=== PATIENT | male | born 1945 | race Caucasian/White ===

== ENCOUNTER 2024-09-15 15:32 | Inpatient (IN) | payer MEDICARE, MEDICAID ==
[~2024-09-15] VITALS: Ht 175.3 cm; Wt 65.8 kg
[2024-09-15 16:24] LABS: BASOPHILS % 0.7 % (0.0-2.0); EOSINOPHILS % 12.3 % (0.0-5.0); HEMOGLOBIN. 10.2 g/dL (14.0-18.0); LYMPHOCYTES % 10.4 % (20.0-50.0); MEAN CORPUSCULAR HEMOGLOBIN 31.4 pg (28.0-32.0); MEAN CORPUSCULAR HGB CONC 33.9 g/dL (31.0-37.0); MEAN CORPUSCULAR VOLUME 92.7 fL (80.0-94.0); MEAN PLATELET VOLUME 7.1 fl (7.4-10.4); MONOCYTES % 6.9 % (2.0-8.0); NEUTROPHILS % 69.7 % (40.0-76.0); PLATELET 299 x1000/uL (130-400); RED BLOOD CELL COUNT 3.24 mill/uL (4.7-6.1)
[2024-09-15 16:26] LABS: CHLORIDE 99 mEq/L (98-107); POTASSIUM 3.6 mEq/L (3.5-5.1); SODIUM 134 mEq/L (136-145)
[2024-09-15 16:27] LABS: CALCIUM 7.6 mg/dL (8.7-10.4); CARBON DIOXIDE 23 mEq/L (21-32)
[2024-09-15 16:32] LABS: GLUCOSE 213 mg/dL (70-105); UREA NITROGEN BLOOD 68 mg/dL (9-23)
[2024-09-15 16:44] LABS: CREATININE 8.7 mg/dL (0.6-1.3); TROPONIN I HIGH SENSITIVITY 57 ng/L (3.0-53)
[2024-09-15 20:00] VITALS: BP_SYST 122; BP_SYST 148; BP_DIAS 76; BP_DIAS 78; PULSE 79; PULSE 84; RESP 18; TEMP 36.5; TEMP 36.6; O2SAT 97
[2024-09-16] VITALS (8 sets, daily range): BP systolic 104–149; BP diastolic 49–86; PULSE 72–80; RESP 18–20; TEMP 35.9–37.16964; O2SAT 97–100
[2024-09-16] MEDS ORDERED: LORATADINE 10MG TABLET PO PRN (03:00)
[2024-09-16] MEDS ORDERED: DEXTROSE 50% WATER 50ML SYRINGE IV PRN (03:00)
[2024-09-16] MEDS ORDERED: ACETAMINOPHEN 500MG TABLET PO PRN (03:00)
[2024-09-16] MEDS ORDERED: BIMA2.5D4 EACHEYE (03:58)
[2024-09-16] MEDS ORDERED: LORA10TA7 PO (03:58)
[2024-09-16] MEDS ORDERED: TOPUD PO (04:00)
[2024-09-16] MEDS ORDERED: ASPI-1406 PO (04:04)
[2024-09-16] MEDS ORDERED: FOLI0.8T53 MT (04:05)
[2024-09-16] MEDS ORDERED: ATOR10TA69 PO (04:06)
[2024-09-16] MEDS ORDERED: LABE200T9 PO (04:07)
[2024-09-16] MEDS ORDERED: FURO20TA4 PO (04:13)
[2024-09-16] MEDS: BLOOD SUGAR DIAGNOSTIC STRIP TEST SCH (07:10)
[2024-09-16] MEDS: INSULIN LISPRO 100 UNITS/ML SUBCUT SCH (07:38)
[2024-09-16] MEDS: ASPIRIN 81MG EC TABLET PO SCH (08:25)
[2024-09-16] MEDS: AMLODIPINE 10MG TABLET PO SCH (08:25)
[2024-09-16] MEDS: LABETALOL HCL 200MG TABLET PO SCH (08:25)
[2024-09-16] MEDS: INSULIN GLARGINE 100 UNITS/ML SUBCUT SCH (09:48)
[2024-09-16 09:59] LABS: HEMATOCRIT 29.7 % (42.0-52.0); HEMOGLOBIN 10.1 g/dL (14.0-18.0); MEAN CORPUSCULAR HEMOGLOBIN 31.5 pg (28.0-32.0); MEAN CORPUSCULAR HGB CONC 34.1 g/dL (31.0-37.0); MEAN CORPUSCULAR VOLUME 92.5 fL (80.0-94.0); PLATELET 293 x1000/uL (130-400); RED BLOOD CELL COUNT 3.21 mill/uL (4.7-6.1); RED CELL DISTRIBUTION WIDTH 13.9 % (11.6-14.6); WHITE BLOOD COUNT 8.1 x1000/uL (4.5-11.0)
[2024-09-16] MEDS: CEFTRIAXONE 1GM/50ML 50 ML IV SCH (12:13)
[2024-09-16 14:14] LABS: CARBON DIOXIDE 23 mEq/L (21-32); CHLORIDE 97 mEq/L (98-107); POTASSIUM 3.7 mEq/L (3.5-5.1); SODIUM 133 mEq/L (136-145)
[2024-09-16 14:15] LABS: CALCIUM 7.5 mg/dL (8.7-10.4)
[2024-09-16 14:19] LABS: GLUCOSE 127 mg/dL (70-105)
[2024-09-16 14:20] LABS: TROPONIN I HIGH SENSITIVITY 53 ng/L (3.0-53); UREA NITROGEN BLOOD 73 mg/dL (9-23)
[2024-09-16 14:22] LABS: PHOSPHORUS 4.3 mg/dL (2.5-4.9)
[2024-09-16] MEDS ORDERED: METOPROLOL TARTRATE 5MG/5ML VIAL IV PRN (14:30)
[2024-09-16] MEDS ORDERED: REGADENOSON 0.4 MG/5 ML IV NR (14:30)
[2024-09-16] MEDS: AMIODARONE 200MG TABLET PO SCH (14:42)
[2024-09-16 14:46] LABS: CREATININE 9.2 mg/dL (0.6-1.3)
[2024-09-16 16:00] LABS: BASOPHILS % 0.8 % (0.0-2.0); EOSINOPHILS % 10.2 % (0.0-5.0); HEMATOCRIT. 29.7 % (42.0-52.0); LYMPHOCYTES % 11.3 % (20.0-50.0); MEAN CORPUSCULAR HEMOGLOBIN 31.5 pg (28.0-32.0); MEAN CORPUSCULAR HGB CONC 33.7 g/dL (31.0-37.0); MEAN CORPUSCULAR VOLUME 93.7 fL (80.0-94.0); MEAN PLATELET VOLUME 7.2 fl (7.4-10.4); MONOCYTES % 11.2 % (2.0-8.0); NEUTROPHILS % 66.5 % (40.0-76.0); PLATELET 303 x1000/uL (130-400); RED BLOOD CELL COUNT 3.16 mill/uL (4.7-6.1); WHITE BLOOD COUNT 8.3 x1000/uL (4.5-11.0)
[2024-09-16] MEDS: ENOXAPARIN 30MG/0.3ML SYR SUBCUT SCH (16:26)
[2024-09-16] MEDS: FOLIC ACID/VITAMIN B COMP W-C TABLET PO SCH (21:20)
[2024-09-16] MEDS: ATORVASTATIN CALCIUM 20MG TABLET PO SCH (21:21)
[2024-09-16 23:13] LABS: BODY FLUID MONOCYTES 40 %; BODY FLUID RBC 2 /cu mm (0-2000); BODY FLUID WBC 32 /cu mm (0-200)
[2024-09-17] VITALS: BP 105/55; PULSE 69; RESP 18; TEMP 36.6; O2SAT 99
[2024-09-17 04:00] VITALS: BP 114/57; PULSE 68; RESP 18; TEMP 37; O2SAT 100
[2024-09-17 07:49] LABS: CHLORIDE 97 mEq/L (98-107); POTASSIUM 3.7 mEq/L (3.5-5.1); SODIUM 135 mEq/L (136-145)
[2024-09-17 07:50] LABS: CARBON DIOXIDE 26 mEq/L (21-32)
[2024-09-17 07:51] LABS: CALCIUM 7.8 mg/dL (8.7-10.4); HEMATOCRIT. 29.8 % (42.0-52.0); HEMOGLOBIN. 10.4 g/dL (14.0-18.0); MEAN CORPUSCULAR HEMOGLOBIN 32.2 pg (28.0-32.0); MEAN CORPUSCULAR HGB CONC 34.9 g/dL (31.0-37.0); MEAN CORPUSCULAR VOLUME 92.4 fL (80.0-94.0); MEAN PLATELET VOLUME 7.2 fl (7.4-10.4); PLATELET 295 x1000/uL (130-400); RED BLOOD CELL COUNT 3.22 mill/uL (4.7-6.1); WHITE BLOOD COUNT 8.1 x1000/uL (4.5-11.0)
[2024-09-17 07:55] LABS: GLUCOSE 73 mg/dL (70-105); UREA NITROGEN BLOOD 73 mg/dL (9-23)
[2024-09-17 07:57] LABS: ALANINE AMINOTRANSFERASE 12 IU/L (10-49); ALBUMIN 3.6 g/dL (3.2-4.8); ASPARTATE AMINOTRANSFERASE 11 IU/L (<34); BILIRUBIN DIRECT < 0.1 mg/dL (<=3.0); PHOSPHORUS 5.1 mg/dL (2.5-4.9)
[2024-09-17 07:58] LABS: BILIRUBIN TOTAL 0.2 mg/dL (0.1-1.0); PROTEIN TOTAL 5.7 g/dL (6.0-8.3)
[2024-09-17 08:00] VITALS: BP_SYST 118; BP_SYST 122; BP_SYST 130; BP_DIAS 52; BP_DIAS 56; PULSE 69; RESP 19; TEMP 36.5; O2SAT 98
[2024-09-17] MEDS ORDERED: REGADENOSON 0.4 MG/5 ML IV ONE (08:05)
[2024-09-17 08:10] VITALS: BP_SYST 122; BP_SYST 135; BP_DIAS 66; BP_DIAS 77; PULSE 74; PULSE 77; RESP 19; TEMP 36.3918; O2SAT 99
[2024-09-17 08:14] LABS: CREATININE 9.4 mg/dL (0.6-1.3)
[2024-09-17 08:16] LABS: DIFFERENTIAL COMMENT 1
[2024-09-17 12:00] VITALS: BP 106/55; PULSE 72; RESP 20; TEMP 36.1; O2SAT 99
[2024-09-17 13:12] LABS: PLATELET ESTIMATE NORMAL
[2024-09-17 15:05] VITALS: BP 108/63; PULSE 74; TEMP 97.9; O2SAT 99
[2024-09-17 16:25] LABS: CLARITY URINE CLEAR (CLEAR); COLOR URINE YELLOW (YELLOW); GLUCOSE URINE NEGATIVE (NEGATIVE); KETONES URINE NEGATIVE (NEGATIVE); LEUKOCYTE ESTERASE URINE NEGATIVE (NEGATIVE); NITRITE URINE NEGATIVE (NEGATIVE); OCCULT BLOOD URINE NEGATIVE (NEGATIVE); PROTEIN URINE 2+ (NEGATIVE); UROBILINOGEN URINE 0.2 E.U./dL (0.2-1.0)
[2024-09-17 18:03] LABS: BACTERIA URINE TRACE; RBC URINE NONE SEEN /hpf (0-2); SQUAMOUS EPITHELIAL CELL URINE RARE /lpf (RARE/1+); WBC URINE NONE SEEN /hpf (0-2)
== END 2024-09-17 16:49 | disposition home or self-care (01) | DRG 73 ==
LOC: ER 15:32 → EDBEDREQ 18:12 → EDBEDREQTM 18:12 → ENRESERV 18:17 → 8WST 19:38
PROVIDERS: ADMIT Internal Medicine; ATTEND Internal Medicine
PROC: 3E1M39Z Irrigation of Peritoneal Cavity using Dialysate, Percutaneous Approach (ICD-10-PCS; principal; 2024-09-16)
DX: G90.89 Other disorders of autonomic nervous system (principal); N18.6 End stage renal disease; N25.81 Secondary hyperparathyroidism of renal origin; I12.9 Hypertensive chronic kidney disease with stage 1 through stage 4 chronic kidney disease, or unspecified chronic kidney disease; D64.9 Anemia, unspecified; E11.22 Type 2 diabetes mellitus with diabetic chronic kidney disease; R00.8 Other abnormalities of heart beat; E78.00 Pure hypercholesterolemia, unspecified; Z99.2 Dependence on renal dialysis; Z82.49 Family history of ischemic heart disease and other diseases of the circulatory system
CPT/HCPCS: 36415; 71045; 78452; 80048; 80061; 80076; 81003; 82962; 83036; 83735; 83880; 84100; 84484; 85025; 85027; 90945; 93005; 93017; 99285; A4606; A9500; J0696; J1650; J1815; J2785